=== PATIENT | male | born 1950 | race Caucasian/White ===

== ENCOUNTER 2020-03-20 14:00 | Inpatient (IN) ==
[2020-03-20 14:39] LABS: Basophils % 0.1 %; Eosinophils % 0.1 %; Hematocrit 38.3 % (37.5-50.1); Hemoglobin 12.5 g/dL (12.9-16.9); Immature Granulocytes % 1.4 % (0-4); Lymphocytes # 1.6 K/mcL (0.6-4.6); Lymphocytes % 8.3 %; Mean Corpuscular HGB Conc 32.6 g/dL (31.6-35.5); Mean Corpuscular Hemoglobin 32.5 pg (28.0-33.3); Mean Corpuscular Volume 99.5 fL (83.0-100.0); Mean Platelet Volume 11.2 fL (9.4-12.4); Monocytes # 0.3 K/mcL (0.0-1.3); Monocytes % 1.3 %; Neutrophils # 16.9 K/mcL (1.6-8.9); Platelet Count 270 K/mcL (140-400); Red Blood Count 3.85 M/mcL (4.19-5.50); Red Cell Distribution Width 13.1 % (11.5-14.5); Segmented Neutrophils % 88.8 %
[2020-03-20 14:53] LABS: BUN/Creatinine Ratio 16 (6-26); Blood Urea Nitrogen 20 mg/dL (8-23); Carbon Dioxide 20 mEq/L (23-29); Chloride 104 mEq/L (98-107); Glucose 196 mg/dL (70-105); Osmolality,Calculated 292 (280-300); Potassium 3.4 mEq/L (3.5-5.1); Sodium 137 mEq/L (136-145); eGFR For African Americans > 60 (> 60); eGFR For Non-African Americans 57 (> 60)
[2020-03-20] MEDS ORDERED: Naloxone 0.4 MG/ML INJ IVP PRN (16:10)
[2020-03-20] MEDS ORDERED: Ondansetron 4 MG/2 ML VIAL IVP PRN (16:10)
[2020-03-20] MEDS ORDERED: 0.9 % Sodium Chloride 1,000 ML IV ONE (16:26)
[2020-03-20] MEDS ORDERED: Ipratropium/Albuterol Neb 3 ML IH PRN (18:39)
[2020-03-20] MEDS ORDERED: EPINEPHrine 1 MG/ML VIAL IM PRN (18:40)
[2020-03-20] MEDS ORDERED: Famotidine 20 MG/2 ML VIAL IVP PRN (18:41)
[2020-03-20] MEDS: Azithromycin 500 MG in 0.9 % Sodium Chloride 250 ML IVPB SCH (19:33)
[2020-03-20] MEDS: 0.9 % Sodium Chloride 1,000 ML IVC SCH (19:33)
[2020-03-20] MEDS: Nicotine 21 MG PATCH.TD24 TD SCH (19:34)
[2020-03-21 02:30] LABS: Basophils % 0.1 %; Eosinophils % 0.1 %; Hematocrit 35.3 % (37.5-50.1); Hemoglobin 11.4 g/dL (12.9-16.9); Immature Granulocytes % 1.4 % (0-4); Lymphocytes # 1.3 K/mcL (0.6-4.6); Lymphocytes % 7.4 %; Mean Corpuscular HGB Conc 32.3 g/dL (31.6-35.5); Mean Corpuscular Hemoglobin 32.8 pg (28.0-33.3); Mean Corpuscular Volume 101.4 fL (83.0-100.0); Mean Platelet Volume 11.1 fL (9.4-12.4); Monocytes # 0.8 K/mcL (0.0-1.3); Monocytes % 4.4 %; Neutrophils # 15.5 K/mcL (1.6-8.9); Platelet Count 237 K/mcL (140-400); Red Blood Count 3.48 M/mcL (4.19-5.50); Red Cell Distribution Width 13.4 % (11.5-14.5); Segmented Neutrophils % 86.6 %; White Blood Count 17.9 K/mcL (4.3-11.1)
[2020-03-21 02:49] LABS: BUN/Creatinine Ratio 19 (6-26); Blood Urea Nitrogen 23 mg/dL (8-23); Calcium 8.4 mg/dL (8.6-10.3); Carbon Dioxide 24 mEq/L (23-29); Chloride 109 mEq/L (98-107); Glucose 134 mg/dL (70-105); Osmolality,Calculated 296 (280-300); Potassium 4.6 mEq/L (3.5-5.1); Sodium 140 mEq/L (136-145); eGFR For African Americans > 60 (> 60); eGFR For Non-African Americans 60 (> 60)
[2020-03-21] MEDS: 0.9 % Sodium Chloride 1,000 ML IVC SCH (06:38)
[2020-03-21] MEDS: *HR* Enoxaparin 40 MG/0.4 ML SYRINGE SQ SCH (06:40)
[2020-03-21] MEDS ORDERED: Nicotine 21 MG PATCH.TD24 TD SCH (09:00)
[2020-03-21] MEDS: Nicotine 21 MG PATCH.TD24 TD SCH (09:14)
[2020-03-21] MEDS ORDERED: *HR* HYDROcodone/Acet 5/325 mg TABLET PO PRN (11:26)
[2020-03-21] MEDS: carvediloL 25 MG TABLET PO SCH ×2 (12:42→16:41)
[2020-03-21] MEDS: allopurinoL 100 MG TABLET PO SCH (12:42)
[2020-03-21] MEDS: Aspirin 81 MG TAB.CHEW PO SCH (12:42)
[2020-03-21] MEDS: amLODIPine 5 MG TABLET PO SCH (14:43)
[2020-03-21] MEDS: Azithromycin 500 MG in 0.9 % Sodium Chloride 250 ML IVPB SCH (17:15)
[2020-03-21] MEDS: Venlafaxine XR (24 HR) 150 MG CAP.ER.24H PO SCH (20:42)
[2020-03-21] MEDS ORDERED: traZODone 50 MG TABLET PO PRN (21:00)
[2020-03-22 02:44] LABS: Basophils % 0.3 %; Eosinophils # 0.1 K/mcL (0.0-0.6); Eosinophils % 0.6 %; Hematocrit 35.5 % (37.5-50.1); Hemoglobin 10.9 g/dL (12.9-16.9); Immature Granulocytes % 1.3 % (0-4); Lymphocytes # 3.7 K/mcL (0.6-4.6); Lymphocytes % 31.3 %; Mean Corpuscular HGB Conc 30.7 g/dL (31.6-35.5); Mean Corpuscular Hemoglobin 31.9 pg (28.0-33.3); Mean Corpuscular Volume 103.8 fL (83.0-100.0); Mean Platelet Volume 11.5 fL (9.4-12.4); Monocytes # 0.9 K/mcL (0.0-1.3); Monocytes % 7.7 %; Neutrophils # 6.9 K/mcL (1.6-8.9); Platelet Count 223 K/mcL (140-400); Red Blood Count 3.42 M/mcL (4.19-5.50); Red Cell Distribution Width 13.7 % (11.5-14.5); Segmented Neutrophils % 58.8 %; White Blood Count 11.7 K/mcL (4.3-11.1)
[2020-03-22 03:02] LABS: BUN/Creatinine Ratio 28 (6-26); Blood Urea Nitrogen 34 mg/dL (8-23); Calcium 8.2 mg/dL (8.6-10.3); Carbon Dioxide 25 mEq/L (23-29); Chloride 111 mEq/L (98-107); Glucose 97 mg/dL (70-105); Magnesium 2.1 mg/dL (1.6-2.6); Osmolality,Calculated 300 (280-300); Potassium 4.2 mEq/L (3.5-5.1); Sodium 141 mEq/L (136-145); eGFR For African Americans > 60 (> 60); eGFR For Non-African Americans 60 (> 60)
[2020-03-22] MEDS: *HR* Enoxaparin 40 MG/0.4 ML SYRINGE SQ SCH (06:17)
[2020-03-22 08:02] VITALS: BP 164/80
[2020-03-22] MEDS: Nicotine 21 MG PATCH.TD24 TD SCH (08:09)
[2020-03-22] MEDS: Aspirin 81 MG TAB.CHEW PO SCH (08:11)
[2020-03-22] MEDS: Venlafaxine XR (24 HR) 150 MG CAP.ER.24H PO SCH (08:11)
[2020-03-22] MEDS: amLODIPine 5 MG TABLET PO SCH (08:13)
[2020-03-22] MEDS: carvediloL 25 MG TABLET PO SCH (08:14)
[2020-03-22] MEDS: allopurinoL 100 MG TABLET PO SCH (08:14)
[2020-03-22] MEDS ORDERED: Cholecalciferol (D-3) 1,000 UNIT (25MCG) TABLET PO SCH (09:00)
[2020-03-22] MEDS ORDERED: Spironolactone 25 MG TABLET PO SCH (09:00)
[2020-03-22] MEDS ORDERED: Furosemide 20 MG TABLET PO SCH (09:00)
[2020-03-22] MEDS ORDERED: Isosorbide MONOnitrate (24 HR) 30 MG TAB.ER.24H PO SCH (09:00)
[2020-03-22] MEDS ORDERED: Tiotropium 18 MCG inhalation IH SCH (10:00)
== END 2020-03-22 10:57 | disposition home or self-care (01) | DRG 871 ==
LOC: EMEROOARM 14:00 → 2ANU 14:00 → SUATTDRO 16:10 → 2ANU 17:30
PROVIDERS: ADMIT Pharmacist; ATTEND Pharmacist